=== PATIENT | female | born 1960 | race African-American/Black ===

== ENCOUNTER 2018-12-22 12:26 | Inpatient (IN) | payer MEDICAID ==
[~2018-12-22] VITALS: Ht 175.3 cm; Wt 86.2 kg
--- NOTE | 2018-12-22 12:30 | NUR ---
PT AMBULATED TO BED 6
[2018-12-22 12:32] VITALS: BP 140/86
--- NOTE | 2018-12-22 12:32 | NUR ---
PT BIB FAMILY C/O CP X 3 HOURS. PT REPORTS PEICING LT SIDED CP THAT RADIATES TO LT NIPPLE. PT DENIES SOB, N/V, OR DIZZINESS AT THIS TIME. PT REPORTS SHE SAW PCP BECAUSE SHE HAS BEEN HAVING INTERMITENT CP FOR PAST 2 MONTHS AND PCP TOLD HER SHE HAD AN IRREGULAR EKG, AND INFORMED PT THAT IF SHE GETS CP TO TAKE BABY ASPIRIN AND COME TO ER. VSS. ER MD TO SEE PT. MEDHX:DM, HLD, GALSTONES RX:JARDIANCE, LIPTOR, ASPIRIN, JANUMET
[2018-12-22 13:02] LABS: BASOPHILS % (AUTO) 0.7 % (0.0-2.0); EOSINOPHILS # (AUTO) 0.1 K/uL (0-0.4); EOSINOPHILS % (AUTO) 1.7 % (0.0-4.0); HEMATOCRIT 38.3 % (36-48); HEMOGLOBIN 12.3 g/dL (12.0-16.0); LYMPHOCYTES % (AUTO) 33.5 % (20.5-51.1); MEAN CORPUSCULAR HEMOGLOBIN 28 pg (27-31); MEAN CORPUSCULAR HGB CONC 32 g/dL (33-37); MEAN CORPUSCULAR VOLUME 87.7 fL (80-94); MONOCYTES # (AUTO) 0.3 K/uL (0.8-1.0); MONOCYTES % (AUTO) 5.2 % (1.7-9.3); NEUTROPHILS # (AUTO) 3.5 K/uL (1.8-7.7); NEUTROPHILS % (AUTO) 58.9 % (42.2-75.2); PLATELET COUNT (AUTO) 261 K/uL (140-450); RED BLOOD CELL COUNT(AUTO) 4.37 MIL/uL (4.20-5.40); RED CELL DISTRIBUTION WIDTH 14.2 % (11.6-13.7); WHITE BLOOD COUNT (AUTO) 5.9 K/uL (4.8-10.8)
--- NOTE | 2018-12-22 13:30 | NUR ---
PT RESTING IN BED, FAMILY AT BEDSIDE, PT REPORTS CP IS STILL THERE BUT HAS DECREASED TO 5/10, PT DENIES SOB, N/V, DIZZINESS, OR WEAKNESS. VSS.
[2018-12-22 13:40] LABS: PROTHROMBIN TIME 9.1 secs (10.8-13.4)
[2018-12-22 14:20] LABS: ANION GAP 11.9 (8-16); CARBON DIOXIDE 27.3 mmol/L (21-32); CREATININE 1.1 mg/dL (0.6-1.3); POTASSIUM 4.2 mmol/L (3.5-5.1); TOTAL BILIRUBIN 0.2 mg/dL (0.0-1.0)
[2018-12-22 14:21] LABS: ALBUMIN 4.2 g/dL (3.4-5.0)
[2018-12-22 14:23] LABS: MAGNESIUM 1.7 mg/dL (1.8-2.4)
--- NOTE | 2018-12-22 14:48 | NUR ---
PER VIET BHAGAT PT OKAY TO TAKE HOME DIABETIC MEDS
[2018-12-22] MEDS ORDERED: ONDANSETRON 4 MG/2 ML VIAL IVP PRN (15:00)
[2018-12-22] MEDS ORDERED: HYDROcodone/APAP 7.5/325 MG 1 TAB PO PRN (15:00)
[2018-12-22] MEDS ORDERED: ACETAMINOPHEN 325 MG TAB PO PRN (15:00)
--- NOTE | 2018-12-22 15:20 | NUR ---
Patient will be admitted to care of DR SALAS. Admited to TELE VIA GURNEY W/ VSS. Will go to room 106B. Belongings list completed. Report to JAI VENTURA.
[2018-12-22 15:30] VITALS: BP 128/82
--- NOTE | 2018-12-22 15:30 | NUR ---
PATIENT ARRIVED ON MST UNIT FROM ER. ABLE TO AMBULATE FROM ER BED TO MST BED WITH STEADY GAIT. NO DISTRESS NOTED. V/S WNL. CHEST PAIN WITHIN TOLERABLE AT THIS TIME. AAOX4, CALM, COOPERATIVE, SKIN COLOR APPROPRIATE TO ETHNICITY, WARM TO TOUCH. SKIN INTACT. ABDOMEN SOFT, OBESE. IV SITE INTACT, PATENT AND ON SALINE LOCK. ORIENTED PATIENT TO ROOM AND CALL LIGHT. REVIEWED PLAN OF CARE WITH PATIENT. PATIENT VERBALIZED UNDERSTANDING. SAFETY MEASURES IN PLACE, CALL LIGHT WITHIN REACH. WILL CONTINUE TO MONITOR.
[2018-12-22 16:13] LABS: FREE T4 (FREE THYROXINE) 0.93 ng/dL (0.76-1.46); MAGNESIUM 1.6 mg/dL (1.8-2.4); PHOSPHORUS 3.6 mg/dL (2.5-4.9); THYROID STIMULATING HORMONE 1.03 uIU/mL (0.34-3.74)
[2018-12-22] MEDS ORDERED: EMPA25TA PO (16:21)
[2018-12-22] MEDS ORDERED: METF1TAB1 PO (16:21)
[2018-12-22] MEDS ORDERED: ASPI-1718 PO (16:21)
[2018-12-22] MEDS ORDERED: LORA10TA19 PO (16:21)
[2018-12-22] MEDS ORDERED: ATOR40TA PO (16:21)
[2018-12-22] MEDS ORDERED: ACET-2619 PO (16:21)
[2018-12-22] MEDS ORDERED: LORATADINE 10 MG TAB PO PRN (17:00)
[2018-12-22] MEDS: metFORMIN 500 MG TAB PO SCH (17:00)
[2018-12-22] MEDS ORDERED: INSULIN LISPRO SLIDING SCALE 100 UNITS/ML VIAL SUBQ PRN (17:35)
[2018-12-22] MEDS ORDERED: DEXTROSE 50% 50 ML SYR IVP PRN (17:35)
--- NOTE | 2018-12-22 17:48 | NUR ---
SCHEDULED MAGNESIUM GIVEN AT THIS TIME. SCHEDULED METFORMIN NOT GIVEN AT THIS TIME PER PATIENT REPORTS, SHE TOOK HER ONCE DAILY DM HOME MEDICATIONS HOURS BEFORE BEING ADMITTED TO MST UNIT. DO NOT WANT TO DOUBLE DOSE AT THIS TIME. WILL CONTINUE TO MONITOR.
[2018-12-22] MEDS ORDERED: MAG SULF 2000 MG/WATER PREMIX 50 ML IV SCH (18:00)
--- NOTE | 2018-12-22 19:12 | NUR ---
REPORT GIVEN TO SANITATION WORKER CLEANING MACHINERY NURSE FOR CONTINUITY OF CARE. PATIENT IN STABLE CONDITION.
--- NOTE | 2018-12-22 19:13 | NUR ---
RECEIVED BEDSIDE REPORT FROM JENNIFER VERGARA. PT A/O X4 ABLE TO MAKE NEEDS KNOWN. DISCUSSED PLAN OF CARE. VERBALIZED UNDERSTANDING. STANDARD PRECAUTIONS. ROOM AIR. NO SIGNS OF RESPIRATORY DISTRESS. SKIN IS INTACT. LEFT AC 20G SALINE LOCK. PATENT AND INTACT. TELE MONITOR. AMBULATORY. STEADY GAIT. BED IN LOW POSITION. CALL LIGHT WITHIN REACH. WILL CONTINUE TO MONITOR.
[2018-12-22 20:00] VITALS: BP 131/78
--- NOTE | 2018-12-22 20:40 | NUR ---
UA-DRUG COLLECTED. WILL CONTINUE TO MONITOR.
[2018-12-22] MEDS: DOCUSATE SODIUM 100 MG GELCAP PO SCH (20:48)
[2018-12-22] MEDS: BLOOD GLUCOSE MONITORING 1 DEV DEV FS SCH (20:48)
[2018-12-22] MEDS: METOPROLOL 25 MG TAB PO SCH ×2 (20:49→21:00)
[2018-12-22 20:54] LABS: APPEARANCE,URINE CLEAR (CLEAR); BILIRUBIN,URINE NEGATIVE (NEGATIVE); BLOOD, URINE NEGATIVE (NEGATIVE); COLOR,URINE YELLOW (YELLOW); LEUKOCYTE ESTERASE ,URINE NEGATIVE (NEGATIVE); NITRITE, URINE NEGATIVE (NEGATIVE); UGLUCOSE 3+ (NEGATIVE)
--- NOTE | 2018-12-22 21:00 | NUR ---
DID NOT ADMINISTER JANUVIA DUE PATIENT TAKING IT DURING THE MORNING. HAD HER HOME MEDICATIONS IN HER PURSE, TOOK IN THE AM.
[2018-12-22 21:02] LABS: BARBITURATE, URINE NEG. ng/ml (NEG <=200); BENZODIAZEPINE, URINE NEG. ng/mL (NEG <=200); CANNABINOID, URINE NEG. ng/mL (NEG <=50); COCAINE, URINE NEG. ng/mL (NEG <=300); OPIATE, URINE NEG. ng/mL (NEG <=2000); PHENCYCLIDINE SCREEN,URINE NEG. ng/mL (NEG <=25)
--- NOTE | 2018-12-22 22:59 | NUR ---
MOST RECENT LAB DRAW TROPONIN - 0.019. WILL CONTINUE TO MONITOR. WILL NEED 1 MORE TROPONIN LEVEL IN 8HRS.
[2018-12-23] VITALS: BP 103/60
--- NOTE | 2018-12-23 00:36 | NUR ---
PT VITALS TAKEN. TOLERATED WELL. WITHIN NORMAL LIMITS. NO PAIN AT THIS TIME. NO COMPLAINTS. NO DISTRESS NOTED. WILL CONTINUE TO MONITOR.
--- NOTE | 2018-12-23 01:52 | NUR ---
PT IS SLEEPING IN BED EASILY AROUSABLE. ABLE TO MAKE NEEDS KNOWN. NO SIGNS OF DISTRESS NOTED. WILL CONTINUE TO MONITOR.
[2018-12-23 04:00] VITALS: BP 138/73
--- NOTE | 2018-12-23 04:00 | NUR ---
VITALS ASSESSED. BP 138/73 O2 100% 73 PULSE RR 18. NO SIGNS OF RESP DISTRESS. DENIES CHEST PAIN. NO SOB. TOLERATED WELL. CALL LIGHT WITHIN REACH. WILL CONTINUE TO MONITOR.
--- NOTE | 2018-12-23 05:43 | NUR ---
PT EASILY AROUSABLE NO SIGNS OF RESP DISTRESS NOTED. EVEN CHEST RISE. NO SOB. NO CHEST PAIN REPORTED. WILL CONTINUE TO MONITOR.
--- NOTE | 2018-12-23 06:25 | NUR ---
WILL ENDORSE PT TO DAYSHIFT RN. PT IN STABLE CONDITION. BED IN LOW POSITION. CALL LIGHT WITHIN REACH. WILL CONTINUE TO MONITOR.
[2018-12-23 06:57] LABS: MAGNESIUM 1.9 mg/dL (1.8-2.4); PHOSPHORUS 3.8 mg/dL (2.5-4.9)
[2018-12-23 07:02] LABS: ANION GAP 14.3 (8-16); CARBON DIOXIDE 27.1 mmol/L (21-32); POTASSIUM 4.4 mmol/L (3.5-5.1)
[2018-12-23 07:03] LABS: BASOPHILS % (AUTO) 0.7 % (0.0-2.0); EOSINOPHILS # (AUTO) 0.1 K/uL (0-0.4); EOSINOPHILS % (AUTO) 2.6 % (0.0-4.0); HEMATOCRIT 37.7 % (36-48); HEMOGLOBIN 12.2 g/dL (12.0-16.0); LYMPHOCYTES # (AUTO) 2.5 K/uL (2.5-16.5); LYMPHOCYTES % (AUTO) 47.1 % (20.5-51.1); MEAN CORPUSCULAR HEMOGLOBIN 28 pg (27-31); MEAN CORPUSCULAR HGB CONC 32 g/dL (33-37); MEAN CORPUSCULAR VOLUME 87.4 fL (80-94); MONOCYTES # (AUTO) 0.3 K/uL (0.8-1.0); MONOCYTES % (AUTO) 5.2 % (1.7-9.3); NEUTROPHILS # (AUTO) 2.4 K/uL (1.8-7.7); NEUTROPHILS % (AUTO) 44.4 % (42.2-75.2); PLATELET COUNT (AUTO) 258 K/uL (140-450); RED BLOOD CELL COUNT(AUTO) 4.31 MIL/uL (4.20-5.40); RED CELL DISTRIBUTION WIDTH 14.3 % (11.6-13.7); WHITE BLOOD COUNT (AUTO) 5.4 K/uL (4.8-10.8)
--- NOTE | 2018-12-23 07:15 | NUR ---
RECEIVED BEDSIDE REPORT FROM LORENZO NOEL. PATIENT ON TELE MONITOR WITH STANDARD PRECAUTIONS IN PLACE. PATIENT AAOX4, ON ROOM AIR, AND AMBULATORY. IV ON L AC 20G SALINE LOCK, IV PATENT AND INTACT. BED IN LOW POSITION, CALL LIGHT WITHIN REACH, SIDE RAILS X2 UP
[2018-12-23] MEDS: BLOOD GLUCOSE MONITORING 1 DEV DEV FS SCH ×4 (07:44→20:48)
[2018-12-23 07:53] LABS: CHOL/HDL RATIO 2.7 (1-4.5)
[2018-12-23 08:00] VITALS: BP 125/73
[2018-12-23] MEDS: METOPROLOL 25 MG TAB PO SCH ×2 (08:12→20:41)
[2018-12-23] MEDS: DOCUSATE SODIUM 100 MG GELCAP PO SCH ×2 (08:12→20:41)
[2018-12-23] MEDS: metFORMIN 500 MG TAB PO SCH ×2 (08:12→17:05)
[2018-12-23] MEDS: ASPIRIN 81 MG TAB.CHEW PO SCH (08:12)
[2018-12-23] MEDS: ATORVASTATIN 20 MG TAB PO SCH (08:13)
[2018-12-23] MEDS: LISINOPRIL 5 MG TAB PO SCH (08:14)
--- NOTE | 2018-12-23 08:20 | NUR ---
ADMINISTERED SCHEDULED MEDS. PATIENT TOLERATED WELL
--- NOTE | 2018-12-23 09:09 | NUR ---
PATIENT HAS BEEN SCREENED AND CATEGORIZED HIGH NUTRITION RISK. PATIENT WILL BE SEEN WITHIN 1-2 DAYS OF ADMISSION. 12/22/18-12/24/[address]
--- NOTE | 2018-12-23 11:41 | NUR ---
PATIENT ON L SIDE LYING POSITION, ON ROOM AIR, NO DISTRESS NOTED
[2018-12-23 12:00] VITALS: BP 118/85
--- NOTE | 2018-12-23 12:38 | NUR ---
PATIENT AMBULATED TO RESTROOM, ON ROOM AIR, NO DISTRESS NOTED
--- NOTE | 2018-12-23 14:11 | NUR ---
12/23/18 RD INITIAL ASSESSMENT COMPLETED PLEASE REFER TO NUTRITION ASSESSMENT UNDER CARE ACTIVITY FOR ESTIMATED NUTRITIONAL NEEDS. 1. CONTINUE CCHO 60 GM DIET TOLERATED 2. ENCOURAGED PT TO ADD A PROTEIN SOURCE TO BREAKFAST WHEN SHE EATS OATMEAL. 3. ENCOURAGED PT TO INCORPORATE MORE FIBER TO DIET, PROVIDED PT WITH A LIST OF FOODS HIGH IN FIBER 4. RD TO FOLLOW-UP 5-7 DAYS, LOW RISK LEATHA BEAR, RD
--- NOTE | 2018-12-23 14:38 | NUR ---
PATIENT SLEEPING L SIDE LYING POSITION, ON ROOM AIR, NO DISTRESS NOTED
[2018-12-23 16:00] VITALS: BP 123/76
--- NOTE | 2018-12-23 16:07 | NUR ---
DR. BENNETT AT BEDSIDE
--- NOTE | 2018-12-23 19:10 | NUR ---
GAVE BEDSIDE REPORT TO LORENZO EMMANUEL. PATIENT ENDORSED IN STABLE CONDITION
--- NOTE | 2018-12-23 19:10 | NUR ---
RECEIVED BEDSIDE REPORT FROM DAY SHIFT NURSE. PATIENT IS AWAKE, ALERT, AND COOPERATIVE. RESPIRATION EVEN UNLABORED ON ROOM AIR. NO DISTRESS NOTED. DENIES PAIN. SKIN IS WARM AND DRY. IV PATENT AND INTACT. PATIENT IS AMBULATORY AND ABLE TO MAKE NEEDS KNOWN. PLAN OF CARE WAS DISCUSSED. BED IS AT LOW POSITION. CALL LIGHT WITHIN REACH AND VERBALIZES ITS USE. WILL CONTINUE TO MONITOR.
[2018-12-23 20:00] VITALS: BP 109/71
--- NOTE | 2018-12-23 20:00 | NUR ---
INITIAL ASSESSMENT DONE. VITALS WERE TAKEN. PATIENT IN STABLE CONDITION. WILL CONTINUE TO MONITOR.
--- NOTE | 2018-12-23 21:00 | NUR ---
ALL SCHEDULED MEDS WERE GIVEN PER ORDER. WILL CONTINUE TO MONITOR.
--- NOTE | 2018-12-23 23:00 | NUR ---
CHECKED PATIENT. PATIENT SLEEPING RESPIRATION EVEN UNLABORED ON ROOM AIR. NO DISTRESS NOTED. WILL CONTINUE TO MONITOR.
[2018-12-24] VITALS: BP 101/59
--- NOTE | 2018-12-24 | NUR ---
VITALS WERE TAKEN. PATIENT CONDITION STABLE. DENIES PAIN. NO DISTRESS NOTED. WILL CONTINUE TO MONITOR.
--- NOTE | 2018-12-24 02:00 | NUR ---
CHECKED PATIENT. PATIENT SLEEPING RESPIRATION EVEN UNLABORED ON ROOM AIR. NO DISTRESS NOTED. WILL CONTINUE TO MONITOR.
[2018-12-24 04:00] VITALS: BP 106/58
--- NOTE | 2018-12-24 04:00 | NUR ---
VITALS WERE TAKEN. PATIENT IN STABLE CONDITION. NO DISTRESS NOTED. WILL CONTINUE TO MONITOR.
[2018-12-24] MEDS: BLOOD GLUCOSE MONITORING 1 DEV DEV FS SCH (06:27)
[2018-12-24 06:43] LABS: BASOPHILS % (AUTO) 0.6 % (0.0-2.0); EOSINOPHILS # (AUTO) 0.1 K/uL (0-0.4); EOSINOPHILS % (AUTO) 2.3 % (0.0-4.0); HEMATOCRIT 38.9 % (36-48); HEMOGLOBIN 12.7 g/dL (12.0-16.0); LYMPHOCYTES # (AUTO) 2.2 K/uL (2.5-16.5); LYMPHOCYTES % (AUTO) 40.1 % (20.5-51.1); MEAN CORPUSCULAR HEMOGLOBIN 29 pg (27-31); MEAN CORPUSCULAR HGB CONC 33 g/dL (33-37); MEAN CORPUSCULAR VOLUME 87.1 fL (80-94); MONOCYTES # (AUTO) 0.3 K/uL (0.8-1.0); MONOCYTES % (AUTO) 5.6 % (1.7-9.3); NEUTROPHILS # (AUTO) 2.8 K/uL (1.8-7.7); NEUTROPHILS % (AUTO) 51.4 % (42.2-75.2); PLATELET COUNT (AUTO) 268 K/uL (140-450); RED BLOOD CELL COUNT(AUTO) 4.47 MIL/uL (4.20-5.40); RED CELL DISTRIBUTION WIDTH 14.1 % (11.6-13.7); WHITE BLOOD COUNT (AUTO) 5.4 K/uL (4.8-10.8)
[2018-12-24 06:57] LABS: ANION GAP 14.8 (8-16); CARBON DIOXIDE 28.6 mmol/L (21-32); CREATININE 0.9 mg/dL (0.6-1.3); MAGNESIUM 1.9 mg/dL (1.8-2.4); PHOSPHORUS 4.7 mg/dL (2.5-4.9); POTASSIUM 4.4 mmol/L (3.5-5.1)
--- NOTE | 2018-12-24 07:14 | NUR ---
ENDORSED PATIENT TO DAY SHIFT NURSE FOR CONTINUITY OF CARE. PATIENT IN STABLE CONDITION.
--- NOTE | 2018-12-24 07:15 | NUR ---
RECEIVED ENDORSEMENT FROM BOATBUILDER SUPERVISOR NURSE. PATIENT IS AAOX4, [place] SPEAKING. RESPIRATIONS ARE EVEN AND UNLABORED ON ROOM AIR. PATIENT DENIES ANY PAIN AT THIS TIME. LEFT AC 20G IV INTACT AND SL. PLAN OF CARE WAS REVIEWED WITH PATIENT. PATIENT VERBALIZED UNDERSTANDING. SAFETY MEASURES IN PLACE, CALL LIGHT WITHIN REACH.
[2018-12-24] MEDS ORDERED: LISI2.5T5 PO (07:50)
[2018-12-24 08:00] VITALS: BP 123/72
[2018-12-24] MEDS: DOCUSATE SODIUM 100 MG GELCAP PO SCH (08:40)
[2018-12-24] MEDS: metFORMIN 500 MG TAB PO SCH (08:40)
[2018-12-24] MEDS: ASPIRIN 81 MG TAB.CHEW PO SCH (08:42)
[2018-12-24] MEDS: LISINOPRIL 5 MG TAB PO SCH (08:44)
[2018-12-24] MEDS: METOPROLOL 25 MG TAB PO SCH (08:45)
--- NOTE | 2018-12-24 08:45 | NUR ---
ADMINISTERED SCHEDULED MEDICATIONS. PATIENT TOLERATED WELL. DENIES ANY PAIN AT THIS TIME. NO OTHER NEEDS AT THIS TIME, WILL CONTINUE TO MONITOR.
[2018-12-24] MEDS: ATORVASTATIN 20 MG TAB PO SCH (08:46)
--- NOTE | 2018-12-24 10:37 | NUR ---
DISCHARGE INSTRUCTIONS GIVEN TO PATIENT. PROVIDED EDUCATION ON MEDICATIONS. ANSWERED ALL QUESTIONS AND CONCERNS. REMOVED IV, CANNULA INTACT WITH MINIMAL BLEEDING. MANNEQUIN MOLDER REMOVED. PATIENT TO BE DRESSED TO LEAVE. FAMILY AT BEDSIDE. PATIENT IS LEAVING TO HOME.
--- NOTE | 2018-12-24 10:42 | NUR ---
REMOVED ID BAND. ESCORTED PATIENT OFF UNIT. ALL BELONGINGS LEFT WITH PATIENT. PATIENT IS STABLE AT THIS TIME.
== END 2018-12-24 10:40 | disposition home or self-care (01) | DRG 203 ==
LOC: MED 12:26 → MTU 15:01
PROVIDERS: ADMIT General Practice; ATTEND General Practice
DX: M94.0 Chondrocostal junction syndrome [Tietze] (principal); E83.42 Hypomagnesemia; K59.00 Constipation, unspecified; E11.9 Type 2 diabetes mellitus without complications; J30.2 Other seasonal allergic rhinitis; E66.9 Obesity, unspecified; E78.5 Hyperlipidemia, unspecified; Z79.84 Long term (current) use of oral hypoglycemic drugs; Z68.28 Body mass index [BMI] 28.0-28.9, adult; Z90.49 Acquired absence of other specified parts of digestive tract; Z98.891 History of uterine scar from previous surgery; Z82.49 Family history of ischemic heart disease and other diseases of the circulatory system; N64.4 Mastodynia
CPT/HCPCS: 36415; 71045; 76641; 80048; 80053; 80305; 81003; 82150; 82948; 82977; 83036; 83690; 83735; 83880; 84100; 84439; 84443; 84484; 85025; 85379; 85610; 85730; 87081; 93005; 99285; G0378; J1644; J3475; Q0092